=== PATIENT | male | born 1955 | race Caucasian/White ===

== ENCOUNTER → 2023-07-13 | Outpatient (CLI) | payer MEDICARE ==
[~2023-07-13] MED LIST: LIDOCAINE HCL 4% LTA SOL 4 ML VIAL ONE
== END | disposition home or self-care (01) ==
LOC: WHH 08:56
PROVIDERS: ATTEND Nurse Practitioner Family
DX: L97.322 Non-pressure chronic ulcer of left ankle with fat layer exposed (principal); I87.8 Other specified disorders of veins; S91.052A Open bite, left ankle, initial encounter; S20.37 Other superficial bite of front wall of thorax; I10 Essential (primary) hypertension; J45.909 Unspecified asthma, uncomplicated; K21.9 Gastro-esophageal reflux disease without esophagitis; F17.200 Nicotine dependence, unspecified, uncomplicated; W54.0XXA Bitten by dog, initial encounter; Y93.89 Activity, other specified; Y92.89 Other specified places as the place of occurrence of the external cause; Y99.8 Other external cause status
CPT/HCPCS: 11042; 87070; 87077; 87186; A6248; A6212; A6260

== ENCOUNTER → 2023-07-16 | Outpatient (CLI) | payer MEDICARE | END | disposition home or self-care (01) | LOC: WHH 11:13 | PROVIDERS: ATTEND Nurse Practitioner Family | DX: L97.321 Non-pressure chronic ulcer of left ankle limited to breakdown of skin (principal); I87.8 Other specified disorders of veins; S91.052D Open bite, left ankle, subsequent encounter; S20.37 Other superficial bite of front wall of thorax; I10 Essential (primary) hypertension; J45.909 Unspecified asthma, uncomplicated; K21.9 Gastro-esophageal reflux disease without esophagitis; F17.200 Nicotine dependence, unspecified, uncomplicated; W54.0XXD Bitten by dog, subsequent encounter | CPT/HCPCS: 93922; A6212 ==

== ENCOUNTER → 2023-07-20 | Outpatient (CLI) | payer MEDICARE | END | disposition home or self-care (01) | LOC: WHH 08:40 | PROVIDERS: ATTEND Nurse Practitioner Family | DX: L97.322 Non-pressure chronic ulcer of left ankle with fat layer exposed (principal); I87.8 Other specified disorders of veins; S91.052D Open bite, left ankle, subsequent encounter; S20.37 Other superficial bite of front wall of thorax; I10 Essential (primary) hypertension; J45.909 Unspecified asthma, uncomplicated; K21.9 Gastro-esophageal reflux disease without esophagitis; F17.200 Nicotine dependence, unspecified, uncomplicated; W54.0XXD Bitten by dog, subsequent encounter | CPT/HCPCS: 11042; A6212 ==

== ENCOUNTER → 2023-07-27 | Outpatient (CLI) | payer MEDICARE | END | disposition home or self-care (01) | LOC: WHH 09:08 | PROVIDERS: ATTEND Nurse Practitioner Family | DX: L97.322 Non-pressure chronic ulcer of left ankle with fat layer exposed (principal); S91.052D Open bite, left ankle, subsequent encounter; S20.37 Other superficial bite of front wall of thorax; I10 Essential (primary) hypertension; I87.8 Other specified disorders of veins; J45.909 Unspecified asthma, uncomplicated; K21.9 Gastro-esophageal reflux disease without esophagitis; F17.200 Nicotine dependence, unspecified, uncomplicated; Z79.899 Other long term (current) drug therapy; W54.0XXD Bitten by dog, subsequent encounter | CPT/HCPCS: 11042; A6197; A4450 ==

== ENCOUNTER → 2023-08-04 | Outpatient (CLI) | payer MEDICARE | END | disposition home or self-care (01) | LOC: WHH 08:08 | PROVIDERS: ATTEND Nurse Practitioner Family | DX: L97.322 Non-pressure chronic ulcer of left ankle with fat layer exposed (principal); S91.052D Open bite, left ankle, subsequent encounter; S20.37 Other superficial bite of front wall of thorax; I10 Essential (primary) hypertension; I87.8 Other specified disorders of veins; J45.909 Unspecified asthma, uncomplicated; K21.9 Gastro-esophageal reflux disease without esophagitis; F17.200 Nicotine dependence, unspecified, uncomplicated; Z79.899 Other long term (current) drug therapy; W54.0XXD Bitten by dog, subsequent encounter | CPT/HCPCS: 11042; A6212; A6022 ==

== ENCOUNTER → 2023-08-11 | Outpatient (CLI) | payer MEDICARE | END | disposition home or self-care (01) | LOC: WHH 08:12 | PROVIDERS: ATTEND Nurse Practitioner Family | DX: L97.322 Non-pressure chronic ulcer of left ankle with fat layer exposed (principal); S91.052D Open bite, left ankle, subsequent encounter; S20.37 Other superficial bite of front wall of thorax; I10 Essential (primary) hypertension; I87.8 Other specified disorders of veins; J45.909 Unspecified asthma, uncomplicated; K21.9 Gastro-esophageal reflux disease without esophagitis; F17.200 Nicotine dependence, unspecified, uncomplicated; Z79.899 Other long term (current) drug therapy; W54.0XXD Bitten by dog, subsequent encounter | CPT/HCPCS: 87070; G0463; A6248; A6212 ==

== ENCOUNTER → 2023-08-18 | Outpatient (CLI) | payer MEDICARE | END | disposition home or self-care (01) | LOC: WHH 08:17 | PROVIDERS: ATTEND Nurse Practitioner Family | DX: L97.322 Non-pressure chronic ulcer of left ankle with fat layer exposed (principal); S91.052D Open bite, left ankle, subsequent encounter; S20.37 Other superficial bite of front wall of thorax; I10 Essential (primary) hypertension; I87.8 Other specified disorders of veins; J45.909 Unspecified asthma, uncomplicated; K21.9 Gastro-esophageal reflux disease without esophagitis; F17.200 Nicotine dependence, unspecified, uncomplicated; Z79.899 Other long term (current) drug therapy; W54.0XXD Bitten by dog, subsequent encounter | CPT/HCPCS: 11042; A6212; A6022 ==

== ENCOUNTER → 2023-08-25 | Outpatient (CLI) | payer MEDICARE | END | disposition home or self-care (01) | LOC: WHH 08:20 | PROVIDERS: ATTEND Nurse Practitioner Family | DX: L97.322 Non-pressure chronic ulcer of left ankle with fat layer exposed (principal); I87.8 Other specified disorders of veins; S91.052D Open bite, left ankle, subsequent encounter; S20.37 Other superficial bite of front wall of thorax; I10 Essential (primary) hypertension; J45.909 Unspecified asthma, uncomplicated; K21.9 Gastro-esophageal reflux disease without esophagitis; F17.200 Nicotine dependence, unspecified, uncomplicated; Z79.899 Other long term (current) drug therapy; W54.0XXD Bitten by dog, subsequent encounter | CPT/HCPCS: G0463; A6212; A6022 ==

== ENCOUNTER → 2023-09-01 | Outpatient (CLI) | payer MEDICARE | END | disposition home or self-care (01) | LOC: WHH 08:27 | PROVIDERS: ATTEND Nurse Practitioner Family | DX: L97.322 Non-pressure chronic ulcer of left ankle with fat layer exposed (principal); S91.052D Open bite, left ankle, subsequent encounter; I10 Essential (primary) hypertension; K21.9 Gastro-esophageal reflux disease without esophagitis; J45.909 Unspecified asthma, uncomplicated; W54.0XXD Bitten by dog, subsequent encounter | CPT/HCPCS: G0463; A6212; A6022; A6260 ==

== ENCOUNTER → 2023-09-15 | Outpatient (CLI) | payer MEDICARE | END | disposition home or self-care (01) | LOC: WHH 08:36 | PROVIDERS: ATTEND Nurse Practitioner Family | DX: L97.322 Non-pressure chronic ulcer of left ankle with fat layer exposed (principal); I87.8 Other specified disorders of veins; S91.052D Open bite, left ankle, subsequent encounter; I10 Essential (primary) hypertension; K21.9 Gastro-esophageal reflux disease without esophagitis; J45.909 Unspecified asthma, uncomplicated; F17.200 Nicotine dependence, unspecified, uncomplicated; Z79.899 Other long term (current) drug therapy; W54.0XXD Bitten by dog, subsequent encounter | CPT/HCPCS: G0463 ==

== ENCOUNTER → 2024-06-30 | Outpatient (CLI) | payer MEDICARE ==
--- NOTE | 2024-06-30 17:27 | HMCSR ---
APPROVED REPORT EXAM: Two-dimensional and M-mode echocardiogram with Doppler and color Doppler. INDICATION ICD: I12.9 Hypertensive Chronic Kidney Disease Stage 1 through 4, R07.89 Other chest pain 2D Dimensions RVDd4.0 cmLVEF(%)53.1 (>50%)LVED Vol(simp.)112.0 mL IVSd1.1 (0.7-1.1cm)FS(%)27 %LVES Vol(simp.)50.0 mL LVDd4.8 (3.8-5.6cm)LA (2D)3.1 (1.6-4.0cm)LVEF(%, simp.)55 % PWd1.1 (0.7-1.1cm)LVOT diam2.5 (1.8-2.4cm)LA ESV INDEX (BP)30.43 mL/m2 IVSs1.3 cmIVC diam1.9 cm LVDs3.5 (2.5-4.0cm) PWs1.6 cm M-Mode Dimensions EPSS1.0 cm LA (MM)3.5 (1.6-4.0cm) Ao Root(MM)3.7 (2.0-3.7cm) Aortic Valve AoV Vmax1.8 m/Edward Peak GR13.0 mmHgLVOT Vmax1.0 m/s AoV VTI0.4 mAo Mean GR7.7 mmHgLVOT VTI0.21 m LANEY (VMAX)2.93 cm2AVA (VTI) 2.9 cm2 Mitral Valve MV E Vmax55.8 cm/sDECEL Topg040 ms MV A Vmax54.0 cm/sP 1/2 T58 ms E/A ratio1.0MVA (PHT)3.8 cm2 TDI E/E' Medial7.2E/E' Lateral5.2 Medial E' Peak V7.70 cm/sLateral E' Peak V10.78 cm/s Pulmonary Valve PV Vmax1.7 m/sPV Mean GR5.9 mmHg PV Peak GR11.0 mmHg Tricuspid Valve TR Vmax0.0 m/sRAP (EST) 3 mmHgRVSP3.0 mmHg TR Peak GR0.0 mmHg Left Ventricle The left ventricle is normal size. There is normal LV segmental wall motion. There is normal left chan tricular wall thickness. LVEF is 50-55%. Indeterminate diastolic dysfunction. Right Ventricle The right ventricle is normal size. The right ventricular systolic function is normal. Atria The left atrium size is normal. The right atrium is borderline dilated. Aortic Valve Aortic valve is trileaflet. Right coronary cusp leaflet appears to have limited excursion. No aortic regurgitation is present. There is no aortic valvular stenosis. Mitral Valve Mitral valve leaflets open well. Anterior mitral valve leaflet is mildly prolapsed. There is trace of mitral valve regurgitation noted. There is no mitral valve stenosis. Tricuspid Valve The tricuspid valve is normal in structure. There is trace of tricuspid valve regurgitation noted. Pulmonic Valve The pulmonary valve is normal in structure. There is no pulmonic valvular regurgitation. Great Vessels The aortic root is normal in size. The IVC is normal in size and collapses >50% with inspiration. Pericardium There is no pericardial effusion. Other Information Quality : Adequate Conclusion LVEF is 50-55%. Mitral valve leaflets open well. Anterior mitral valve leaflet is mildly prolapsed. There is trace of mitral valve regurgitation noted.
== END | disposition home or self-care (01) ==
LOC: RAH 13:40
PROVIDERS: ATTEND Internal Medicine
DX: I12.9 Hypertensive chronic kidney disease with stage 1 through stage 4 chronic kidney disease, or unspecified chronic kidney disease (principal); N18.9 Chronic kidney disease, unspecified; R07.89 Other chest pain; F17.201 Nicotine dependence, unspecified, in remission
CPT/HCPCS: 93306